=== PATIENT | female | born 1965 | race Caucasian/White ===

== ENCOUNTER 2018-08-15 00:04 | Outpatient (CLI) | payer BC, SELFPAY ==
--- NOTE | 2018-08-15 16:02 | DI.MAMMO_ITS ---
SYMPTOMS/DIAGNOSIS: SCREENING, Z12.31 MAMMOGRAM: Mammograms were interpreted according to the usual protocol including computer analysis with CAD system, tomosynthesis and C view imaging. Comparison is made with exams from 2014 through 2018. The breasts are composed of heterogeneously dense fibroglandular tissue, breast density Category C. No suspicious masses or suspicious microcalcifications are seen. There has been no significant change. IMPRESSION: Category I C, negative mammogram. Yearly screening mammography is recommended. [facility] ASSESSMENT OF FINDINGS: Negative. Category 1. Patient will receive a letter notifying them of these results. Bi-RADS category C. The breasts are heterogeneously dense, which may obscure small masses.
== END 2018-08-15 00:24 ==
PROVIDERS: PCP Family Medicine; Visit Provider Family Medicine
DX: Z12.31 Encounter for screening mammogram for malignant neoplasm of breast (principal)
CPT/HCPCS: 77063; 77067

== ENCOUNTER 2019-12-04 10:04 | Outpatient (REF) | payer BC, SELFPAY ==
[2019-12-04 18:33] LABS: HCT 40.1 % (36.0-46.0); HGB 13.1 g/dL (12.0-15.5); Mean Corp. HGB Concentration 32.7 g/dL (32.0-36.0); Mean Corpuscular Hemoglobin 30.3 pg (27.0-33.0); Mean Corpuscular Volume 92.6 fL (80-95); Mean Platelet Volume 11.4 fL (8.0-11.0); Platelet Count 236 x1000/uL (130-400); RBC 4.33 m/cumm (4.00-5.20); RBC Distribution Width 12.6 % (11.7-14.6); White Blood Cell Count 4.01 k/cumm (4.4-10.8)
[2019-12-04 18:53] LABS: ALT 178 U/L (14-59); AST 75 U/L (15-37); Albumin 3.9 g/dL (3.4-5.0); Alkaline Phosphatase 73 U/L (46-116); Anion Gap 7.8 mmol/L (3-11); BUN 20 mg/dL (7-18); Bilirubin, Total 0.3 mg/dL (0.2-1.0); CO2 28.2 mmol/L (21.0-32.0); CREATININE 0.77 mg/dL (0.55-1.02); Calcium 9.4 mg/dL (8.5-10.1); Chloride 102 mmol/L (98-107); Glucose 81 mg/dL (74-106); Potassium 4.7 mmol/L (3.5-5.1); Sodium 138 mmol/L (136-145); TSH (W/Ref FT4) 1.59 uIU/mL (0.36-3.74); Total Protein 7.7 g/dL (6.4-8.2)
[2019-12-09 14:03] LABS: Iron 100 ug/dL (50-170); Total Iron Binding Capacity 309 ug/dL (250-450); Transferrin Sat 32 % (15-50)
[2019-12-09 14:17] LABS: Ferritin 135 ng/mL (8-252)
== END 2019-12-04 10:24 ==
LOC: NCHCN 10:04
PROVIDERS: PCP Family Medicine; Visit Provider Family Medicine
DX: I10 Essential (primary) hypertension (principal); R79.89 Other specified abnormal findings of blood chemistry; F10.10 Alcohol abuse, uncomplicated
CPT/HCPCS: 80053; 85027; 82728; 83540; 83550; 84443

== ENCOUNTER 2019-12-14 16:54 | Outpatient (REF) | payer BC, SELFPAY ==
[2019-12-16 11:48] LABS: Hepatitis A Antibody IgM Negative (Negative); Hepatitis B Core Antibody Negative (Negative); Hepatitis B surface Ag Negative (Negative); Hepatitis C Ab w Rflx HCV PCR Negative (Negative)
== END 2019-12-14 17:14 ==
LOC: NCHCN 16:54
PROVIDERS: PCP Family Medicine; Visit Provider Family Medicine
DX: R79.89 Other specified abnormal findings of blood chemistry (principal); F10.10 Alcohol abuse, uncomplicated
CPT/HCPCS: 86704; 86709; 86803; 87340

== ENCOUNTER 2020-02-22 19:39 | Outpatient (REF) | payer BC, SELFPAY ==
[2020-02-22 21:53] LABS: ALT 131 U/L (14-59); AST 52 U/L (15-37); Albumin 3.9 g/dL (3.4-5.0); Alkaline Phosphatase 73 U/L (46-116); Bilirubin, Direct 0.06 mg/dL (0.00-0.20); Bilirubin, Total 0.2 mg/dL (0.2-1.0); Total Protein 7.6 g/dL (6.4-8.2)
== END 2020-02-22 19:59 ==
LOC: NCHCN 19:39
PROVIDERS: PCP Family Medicine; Visit Provider Family Medicine
DX: R79.89 Other specified abnormal findings of blood chemistry (principal)
CPT/HCPCS: 80076

== ENCOUNTER 2020-05-09 00:38 | Outpatient (CLI) | payer BC, SELFPAY ==
--- NOTE | 2020-05-09 12:55 | DI.MAMMO_ITS ---
EXAM: MAMMO SCREENING CLINICAL HISTORY: SCREENING,Z12.31 TECHNIQUE: Mammograms were interpreted according to the usual protocol including computer analysis w [facility] CAD system, tomosynthesis and C-view imaging. COMPARISON: FINDINGS: Breasts are heterogeneously dense. No dominant mass or clumped microcalcification is identified in e ither breast. Current examination is compared with previous examinations including August 2018 and there has been no gross interval change in appearance in comparison with the prior studies. IMPRESSION: No specific evidence of malignancy at this time. Routine screening examinations are suggested at yea rly intervals due to the family history of breast carcinoma. BI-RADS Category 1 - Negative Breast Density - Category C - Heterogeneously dense
== END 2020-05-09 00:58 ==
PROVIDERS: PCP Family Medicine; Visit Provider Family Medicine
DX: Z12.31 Encounter for screening mammogram for malignant neoplasm of breast (principal); Z80.3 Family history of malignant neoplasm of breast
CPT/HCPCS: 77063; 77067

== ENCOUNTER 2020-05-18 21:01 | Outpatient (REF) | payer BC, SELFPAY ==
[2020-05-18 19:46] LABS: ALT 294 U/L (14-59); AST 112 U/L (15-37); Albumin 4.2 g/dL (3.4-5.0); Alkaline Phosphatase 85 U/L (46-116); Bilirubin, Direct 0.07 mg/dL (0.00-0.20); Bilirubin, Total 0.3 mg/dL (0.2-1.0)
== END 2020-05-18 21:21 ==
LOC: NCHCN 21:01
PROVIDERS: PCP Family Medicine; Visit Provider Family Medicine
DX: R79.89 Other specified abnormal findings of blood chemistry (principal)
CPT/HCPCS: 80076

== ENCOUNTER 2020-05-31 00:43 | Outpatient (CLI) | payer BC, SELFPAY ==
--- NOTE | 2020-05-31 | DI.US_ITS ---
EXAM: US ABDOMEN CLINICAL HISTORY: ELEVATED LFT'S,R79.89 TECHNIQUE: Ultrasound abdomen performed using standard protocol. COMPARISON: No exams were available for comparison FINDINGS: ABDOMINAL AORTA AND IVC: Visualized portions normal caliber. PANCREAS: Normal where visualized. LIVER: The liver is echogenic consistent with fatty infiltration. The liver measures 17.5 cm in [place] th. Hepatopedal flow in the Portal Vein. There is a 5 x 5.4 x 6.9 cm thinly septated cyst in the lef t lobe of the liver. No internal blood flow is seen. There is a 1.4 x 1.9 x 1.7 cm cyst in the left lobe of the liver. GALLBLADDER: No evidence of cholelithiasis. No evidence of wall thickening. No pericholecystic fluid identified. BILIARY SYSTEM: Common bile duct measures < 7 mm. No intrahepatic biliary ductal dilation. CUEVAS'S SIGN: Negative. KIDNEYS: Kidneys are symmetric in size. No evidence of renal calculi. No evidence of hydronephrosis. No renal mass or cyst identified. SPLEEN: Not enlarged. ASCITES: None seen. IMPRESSION: 1. Hepatic steatosis. 2. Hepatic cysts. The largest measures 6.9 cm and is septated. A CT scan of the liver is recommende d for further evaluation. DATA REPOSITORY:
== END 2020-05-31 01:03 ==
PROVIDERS: PCP Family Medicine; Visit Provider Family Medicine
DX: K76.0 Fatty (change of) liver, not elsewhere classified (principal); K76.89 Other specified diseases of liver
CPT/HCPCS: 76700

== ENCOUNTER 2020-06-30 00:46 | Outpatient (CLI) | payer BC, SELFPAY ==
[2020-06-30 09:10] LABS: CREATININE 0.71 mg/dL (0.55-1.02)
[2020-06-30] MEDS: Omnipaque 350 MG/ML 100 ML BTL IJ (09:43)
[2020-06-30] MEDS: Normal Saline - Diluent 50 ML VIAL IV (09:48)
--- NOTE | 2020-06-30 09:52 | DI.CT_ITS ---
EXAM: CT ABDOMEN W CLINICAL HISTORY: F/U LIVER CYSTS ON US. TECHNIQUE: Imaging Protocol: Axial computed tomography images with coronal and sagittal reformatted images were created and reviewed CONTRAST MATERIAL: Intravenous: Omnipaque 100cc Oral: Yes COMPARISON: US US ABDOMEN from 05/31/2020 US US ABDOMEN from 05/31/2020 FINDINGS: VISUALIZED LUNG BASES: No nodules nor pleural effusions evident. ABDOMEN: There is no ascites. LIVER: There is a large simple unilocular cyst in the left hepatic lobe which measures 6.3 centimetre s wide by 5.6 centimetres AP by 5.2 centimetres cephalocaudal. No other focal left hepatic lobe find ings but there is no other smaller cysts seen in the inferior aspect of the right hepatic lobe which measures 1.8 centimetres wide by 1.6 centimetres AP by 1.3 centimetres cephalocaudal. This also has a simple appearance. No solid lesions seen in the liver. No dilated intrahepatic ducts. Liver is s teatotic. Upper normal size. GALLBLADDER/BILIARY: No obvious gallbladder pathology. CBD is not dilated. PANCREAS: No evidence of pancreatic mass nor dilatation of the pancreatic duct. SPLEEN: Spleen is not enlarged. No obvious intrasplenic lesions. Splenic and portal veins are paten t. ADRENALS: There are no significant adrenal masses. KIDNEYS: No calculi nor hydronephrosis. No solid renal masses. No cysts evident. ABDOMINAL AORTA: Abdominal aorta is not enlarged and there is no [id number]-fpittd adenopat hy. ABDOMINAL WALL/GI: No evidence of significant anterior abdominal wall hernia. No bowel obstruction e vident. Please note that the pelvis was not scanned. Osseous: No lytic osseous lesions seen. IMPRESSION: 1. Two benign-appearing cysts in the liver, 1 in each lobe as described individually above. These ap pear unilocular on CT scan. Recommend follow-up ultrasound in 1 year, earlier if clinically indicate d. 2. Hepatic steatosis noted. Correlation appropriate hepatic blood work is recommended. 3. No ascites nor adenopathy in the abdomen. 4. Pelvis was not scanned. RADIATION DOSE DELIVERED: 525.71mGy.cm Total DLP 525.71mGy.cm Total DLP DATA REPOSITORY: All CT scans at this facility are submitted to the National Radiology Data Registry (NRDR) Dose Index Registry (DIR) with the [employer] (ACR). RADIATION OPTIMIZATION: All CT scans at this facility use at least one of these dose optimization te chniques: automated exposure control; mA and/or kV adjustment per patient size (includes targeted exa ms where dose is matched to clinical indication); or iterative reconstruction.
== END 2020-06-30 01:06 ==
PROVIDERS: PCP Family Medicine; Visit Provider Family Medicine
DX: K76.89 Other specified diseases of liver (principal); K76.0 Fatty (change of) liver, not elsewhere classified
CPT/HCPCS: 74160; 82565; J3490

== ENCOUNTER 2020-10-12 16:45 | Outpatient (REF) | payer BC, SELFPAY ==
[2020-10-12 20:03] LABS: ALT 223 U/L (14-59); AST 93 U/L (15-37); Albumin 4.4 g/dL (3.4-5.0); Alkaline Phosphatase 85 U/L (46-116); Bilirubin, Direct 0.1 mg/dL (0.0-0.2); Bilirubin, Total 0.3 mg/dL (0.2-1.0); Total Protein 8.2 g/dL (6.4-8.2)
== END 2020-10-12 16:46 | disposition home or self-care (01) ==
LOC: NCHCN 16:45
PROVIDERS: PCP Family Medicine; Visit Provider Family Medicine
DX: K76.0 Fatty (change of) liver, not elsewhere classified (principal); R79.89 Other specified abnormal findings of blood chemistry
CPT/HCPCS: 80076

== ENCOUNTER 2021-05-12 00:44 | Outpatient (CLI) | payer BC, SELFPAY ==
--- NOTE | 2021-05-12 | DI.MAMMO_ITS ---
Exam(s) MAMMO SCREENING EXAM: MAMMO SCREENING CLINICAL HISTORY: SCREENING, Z12.31 TECHNIQUE: Mammograms were interpreted according to the usual protocol including computer analysis w [employer] CAD system, tomosynthesis and C-view imaging. COMPARISON: FINDINGS: The breasts are heterogeneously dense. No dominant mass or clumped microcalcification is identified in either breast. The current examination is compared with previous examinations including April 15 and there is increased prominence of a focal area of asymmetric density projected in the central portion of the right breast on CC view only. Additional mammographic views of this area are requeste d to include CC spot compression view of the right breast. No other significant change from prior studies. IMPRESSION: Additional mammographic views of the right breast requested as described above. Breast ultrasound ma y be indicated as well depending on the results additional mammographic views. BI-RADS Category 0 - Assessment Incomplete: Need additional imaging evaluation Breast Density - Category C - Heterogeneously dense
== END 2021-05-12 01:04 ==
PROVIDERS: PCP Family Medicine; Visit Provider Family Medicine
DX: Z12.31 Encounter for screening mammogram for malignant neoplasm of breast (principal); R92.8 Other abnormal and inconclusive findings on diagnostic imaging of breast
CPT/HCPCS: 77063; 77067

== ENCOUNTER 2021-06-01 01:05 | Outpatient (CLI) | payer BC, SELFPAY ==
--- NOTE | 2021-06-01 | DI.US_ITS ---
Exam(s) US BREAST RT COMPLETE EXAM: US BREAST RT COMPLETE CLINICAL HISTORY: ASYMMETRIC DENSITY CENTRAL PORTION RT BREAST. TECHNIQUE: Complete ultrasound of the RIGHT breast was performed including all 4 quadrants, the retr oareolar region, and the ipsilateral axilla. COMPARISON: Prior mammograms were reviewed. today's spot compression view was reviewed FINDINGS: There is a solitary finding in the right breast at 12 o'clock position which has appearance of a prob able hemorrhagic microcyst and which may correspond to the finding on the mammogram. This measures a pproximately 4 x 3 millimeters. No other focal finding seen in all 4 quadrants nor in the retroareolar region. Benign-appearing lymp h nodes noted in the right axilla. IMPRESSION: As above. Appropriate follow-up is repeat right breast imaging in 6 months, this to include repeat right breast mammogram and ultrasound.. BI-RADS Category 3 - 6 month - Probably Benign Finding: Recommend follow-up mammography in 6 months Breast Density - Category C - Heterogeneously dense Breast density Category C or D implies that the patient has dense breast tissue. Dense breast tissue can make it harder to find cancer on a mammogram. Dense breast tissue is also associated with an incr eased risk of breast cancer. This information about the result of the mammogram report was provided to the patient to raise their awareness. Use this report when you speak with the patient about their risks for breast cancer, which includes their family history. At that time, you may recommend additional screening tests (Ultrasoun d or MRI) as these tests may add significant information. A negative radiographic report should not delay biopsy if a dominant or clinically suspicious mass is present. Up to ten percent of cancers are not identified on mammography. A negative report may reinforce clinical impression. Adenosis and dense breasts may obscure an underlying neoplasm. False positive reports average 6 to 10%. Patient will receive a letter notifying them of these results.
--- NOTE | 2021-06-01 14:30 | DI.MAMMO_ITS ---
Exam(s) MAMMO SCREEN CALL BACK UNI EXAM: MAMMO SCREEN CALL BACK UNI -RIGHT CLINICAL HISTORY: ASYMMETRIC DENSITY CENTRAL PORTION RT BREAST. TECHNIQUE: Unilateral spot mammographic images obtained with 3D tomosynthesisand utilizing computer aided detection (CAD). . COMPARISON: Prior mammograms were reviewed. This additional imaging was performed due to findings described on the recent screening mammogram of . FINDINGS: Additional mammographic views performed todayis equivocal for significant finding. Ultrasound will be performed. Please see that separate ultrasound report. Ultrasound performed today revealed what appears to be a small hemorrhagic microcysts at 12 o'clock p osition. This may correspond to the finding on the mammogram.. IMPRESSION: Above. Appropriate follow-up is repeat right breast imaging in 6 months, this to include repeat right breas t mammogram and ultrasound.. The patient was informed of these findings and recommendations prior to leaving the department today. BI-RADS Category 3 - 6 month - Probably Benign Finding: Recommend follow-up mammography in 6 months Breast Density - Category C - Heterogeneously dense Breast density Category C or D implies that the patient has dense breast tissue. Dense breast tissue can make it harder to find cancer on a mammogram. Dense breast tissue is also associated with an incr eased risk of breast cancer. This information about the result of the mammogram report was provided to the patient to raise their awareness. Use this report when you speak with the patient about their risks for breast cancer, which includes their family history. At that time, you may recommend additional screening tests (Ultrasoun d or MRI) as these tests may add significant information. A negative radiographic report should not delay biopsy if a dominant or clinically suspicious mass is present. Up to ten percent of cancers are not identified on mammography. A negative report may reinforce clinical impression. Adenosis and dense breasts may obscure an underlying neoplasm. False positive reports average 6 to 10%. Patient will receive a letter notifying them of these results.
== END 2021-06-01 01:25 ==
PROVIDERS: PCP Family Medicine; Visit Provider Family Medicine
DX: Z12.31 Encounter for screening mammogram for malignant neoplasm of breast (principal); R92.8 Other abnormal and inconclusive findings on diagnostic imaging of breast; N60.01 Solitary cyst of right breast; N64.59 Other signs and symptoms in breast
CPT/HCPCS: 76642; 77063; 77067

== ENCOUNTER 2021-08-02 09:02 | Outpatient (REF) | payer BC, SELFPAY ==
[2021-08-02 16:01] LABS: ALT 37 U/L (14-59); AST 25 U/L (15-37); Albumin 4.4 g/dL (3.4-5.0); Alkaline Phosphatase 90 U/L (46-116); Bilirubin, Direct 0.1 mg/dL (0.0-0.2); Bilirubin, Total 0.3 mg/dL (0.2-1.0); Total Protein 7.6 g/dL (6.4-8.2)
[2021-08-02 16:19] LABS: Calculated LDL 164 mg/dL (<100); Cholesterol 258 mg/dL (<200); HDL Cholesterol 83 mg/dL (40-60); Triglyceride 56 mg/dL (<150)
[2021-08-03 10:24] LABS: HIV-1/2 Ag & Ab Screen Negative (Negative)
== END 2021-08-02 09:03 | disposition home or self-care (01) ==
LOC: NCHCN 09:02
PROVIDERS: PCP Family Medicine; Visit Provider Family Medicine
DX: Z00.00 Encounter for general adult medical examination without abnormal findings (principal); R79.89 Other specified abnormal findings of blood chemistry; Z11.4 Encounter for screening for human immunodeficiency virus [HIV]; Z13.220 Encounter for screening for lipoid disorders
CPT/HCPCS: 80061; 80076; 87389

== ENCOUNTER 2021-12-28 12:38 | Outpatient (REF) | payer BC, SELFPAY ==
--- NOTE | 2021-12-28 11:00 | SKI_PTH ---
PATIENT: Amber Solomon LOC: [facility] U#:[id number] AGE/SX: 56/F ROOM: RE12/28/[address]: Vickie Sandy : 1965 BED: DIS: 12/28/2021 SPEC #: [id number] RECD: 12/28/21 16:55 STATUS: GONZALO HONG #: [id number] KLAUS: 12/28/21 11:[address]: Vickie Sandy DEPT: Surgical Specimen RECD BY: Ashanti Silvestre Tissues: 1 - SKIN BIOPSY(SHAVE/PUNCH) Procedures: SKIN LEVEL 4 Comments: [id number]
== END 2021-12-28 12:39 | disposition home or self-care (01) ==
LOC: NCHCN 12:38
PROVIDERS: PCP Family Medicine; Visit Provider Family Medicine
DX: L82.1 Other seborrheic keratosis (principal)
CPT/HCPCS: 88305

== ENCOUNTER → 2022-01-03 01:15 | Outpatient (CLI) | payer BC, SELFPAY ==
--- NOTE | 2022-01-03 | DI.US_ITS ---
Exam(s) MG MAMMO DIAGNOSTIC UNI US BREAST RT LIMITED EXAM: MG MAMMO DIAGNOSTIC UNI and U/S breast RT limited CLINICAL HISTORY: DIAGNOSTIC, H/O ABNL MAMMO, Z87.898. TECHNIQUE: Craniocaudal and mediolateral oblique Full Field Digital Mammography views of the right b reast with Computer Aided Diagnosis followed by Tomosynthesis and right breast ultrasound. COMPARISON: Comparison with prior examinations. FINDINGS: Mammography/Tomosynthesis: Masses/Architectural Distortion: None seen. Microcalcifictions: No suspicious pleomorphic-type are seen. Skin Thickening/Nipple Retraction: None. Limited right breast US: Echotexture: Normal appearance of the glandular tissue. Shadowing: No suspicious foci. Cyst: The 0.3 cm cyst at the 12 o'clock position 4 cm from the nipple is unchanged. Solid lesions: None seen. Ductal dilation: None. IMPRESSION: 1. No evidence of malignancy is noted. 2. Unless there is more urgent need, follow-up screening mammography is recommended, as per [employer] guidelines. 3. The findings were discussed with the patient on the date of the examination. BI-RADS Category 2 - Benign Findings Breast Density - Category C - Heterogeneously dense Breast density Category C or D implies that the patient has dense breast tissue. Dense breast tissue can make it harder to find cancer on a mammogram. Dense breast tissue is also associated with an incr eased risk of breast cancer. This information about the result of the mammogram report was provided to the patient to raise their awareness. Use this report when you speak with the patient about their risks for breast cancer, which includes their family history. At that time, you may recommend additional screening tests (Ultrasoun d or MRI) as these tests may add significant information. A negative radiographic report should not delay biopsy if a dominant or clinically suspicious mass is present. Up to ten percent of cancers are not identified on mammography. A negative report may reinforce clinical impression. Adenosis and dense breasts may obscure an underlying neoplasm. False positive reports average 6 to 10%. Patient will receive a letter notifying them of these results.
== END ==
PROVIDERS: PCP Family Medicine; Visit Provider Family Medicine
DX: R92.2 Inconclusive mammogram (principal); Z87.898 Personal history of other specified conditions
CPT/HCPCS: 76642; 77061; 77065; G0279

== ENCOUNTER 2022-04-12 14:32 | Outpatient (REF) | payer BC, SELFPAY ==
--- NOTE | 2022-04-12 11:17 | PAPFT_PTH ---
PATIENT: Amber Solomon LOC: [facility] U#:[id number] AGE/SX: 56/F ROOM: RE04/12/[address]: Vickie Sandy : 1965 BED: DIS: 04/12/2022 SPEC #: [id number] RECD: 04/12/22 17:51 STATUS: GONZALO RERoxy #: [id number] KLAUS: 04/12/22 11:[address]: Vickie Sandy DEPT: [facility] Cytology RECD BY: Ashanti Silvestre Tissues: 1 - CX/ENDOCX FOR PAP SMEARS Procedures: PAP THIN PREP/UVM Screening HPV DNA PROBE Comments: [id number]
[2022-04-12 14:52] LABS: HCT 39.3 % (36.0-46.0); HGB 12.6 g/dL (11.2-15.7); MCH 28.4 pg (27.0-33.0); MCHC 32.1 % (32.0-36.0); MCV 89 fL (80-95); Platelet Count 265 10^3/uL (130-400); RBC 4.43 10^6/uL (3.93-5.22); RDW 12.2 % (11.7-14.6); RDW-SD 39.6 fL; WBC 5.94 10^3/uL (4.4-10.8)
[2022-04-12 15:23] LABS: ALT 32 U/L (14-59); AST 26 U/L (15-37); Albumin 4.2 g/dL (3.4-5.0); Alkaline Phosphatase 73 U/L (46-116); Anion Gap 6.6 mmol/L (3-11); BUN 14 mg/dL (7-18); Bilirubin, Total 0.3 mg/dL (0.2-1.0); CO2 29.4 mmol/L (21.0-32.0); CREATININE 0.7 mg/dL (0.55-1.02); Calcium 9.6 mg/dL (8.5-10.1); Chloride 103 mmol/L (98-107); Estimated GFR 100.19 (mL/min/1.73m2); Glucose 82 mg/dL (74-106); Potassium 4.1 mmol/L (3.5-5.1); Sodium 139 mmol/L (136-145); Total Protein 7.8 g/dL (6.4-8.2)
== END 2022-04-12 14:33 | disposition home or self-care (01) ==
LOC: NCHCN 14:32
PROVIDERS: PCP Family Medicine; Visit Provider Family Medicine
DX: I10 Essential (primary) hypertension (principal); Z12.4 Encounter for screening for malignant neoplasm of cervix; Z01.419 Encounter for gynecological examination (general) (routine) without abnormal findings; Z11.51 Encounter for screening for human papillomavirus (HPV)
CPT/HCPCS: 80053; 85027; 88142; 87624

== ENCOUNTER 2022-07-12 10:21 | Outpatient (REF) | payer BC, SELFPAY ==
[2022-07-12 16:08] LABS: Uric Acid 3.7 mg/dL (2.6-6.0)
== END 2022-07-12 10:22 | disposition home or self-care (01) ==
LOC: NCHCN 10:21
PROVIDERS: PCP Family Medicine; Visit Provider Family Medicine
DX: M79.671 Pain in right foot (principal)
CPT/HCPCS: 84550

== ENCOUNTER 2022-09-11 01:16 | Outpatient (CLI) | payer BC, SELFPAY ==
--- NOTE | 2022-09-11 06:30 | DI.RAD_ITS ---
Exam(s) XR FOOT RT COMPLETE EXAM: XR FOOT RT COMPLETE CLINICAL HISTORY: R hallux rigidus,PAIN, M79.673,M20.20. TECHNIQUE: 2D digital imaging was performed. COMPARISON: No exams were available for comparison FINDINGS: 3 views No evidence of acute fracture or diastasis of the Lisfranc joint. There are advanced degenerative ch anges in the great toe metatarsophalangeal joint with joint space narrowing and degenerative subartic ular cysts and marginal osteophytes at this articulation. No distinct erosions evident at this artic ulation. Other MTP joints appear unremarkable as do the tarsometatarsal joints. No pes planus. Tin y inferior calcaneal spur noted. Enthesophyte noted posteriorly at the Achilles insertion on the pos terior aspect of the calcaneus. IMPRESSION: Degenerative changes at the great toe metatarsophalangeal joint. DATA REPOSITORY: RADIATION DOSE DELIVERED:
== END 2022-09-11 01:36 ==
LOC: DI 01:17
PROVIDERS: PCP Family Medicine; Visit Provider Podiatrist Foot & Ankle Surgery
DX: M20.21 Hallux rigidus, right foot (principal); M19.071 Primary osteoarthritis, right ankle and foot
CPT/HCPCS: 73630

== ENCOUNTER 2023-04-15 18:41 | Outpatient (REF) | payer BC, SELFPAY ==
[2023-04-15 18:03] LABS: ALT 29 U/L (14-59); AST 23 U/L (15-37); Albumin 3.8 g/dL (3.4-5.0); Alkaline Phosphatase 70 U/L (46-116); Anion Gap 8.2 mmol/L (3-11); BUN 13 mg/dL (7-18); Bilirubin, Total 0.3 mg/dL (0.2-1.0); CO2 26.8 mmol/L (21.0-32.0); CREATININE 0.7 mg/dL (0.55-1.02); Calcium 10.1 mg/dL (8.5-10.1); Chloride 103 mmol/L (98-107); Estimated GFR 99.57 (mL/min/1.73m2); Glucose 85 mg/dL (74-106); Sodium 138 mmol/L (136-145); TSH (W/Ref FT4) 0.98 uIU/mL (0.36-3.74); Total Protein 7.9 g/dL (6.4-8.2)
== END 2023-04-15 18:42 | disposition home or self-care (01) ==
LOC: NCHCN 18:41
PROVIDERS: PCP Family Medicine; Visit Provider Family Medicine
DX: R53.83 Other fatigue (principal)
CPT/HCPCS: 80053; 84443

== ENCOUNTER → 2023-05-23 00:39 | Outpatient (CLI) | payer BC, SELFPAY ==
--- NOTE | 2023-05-23 08:10 | DI.MAMMO_ITS ---
Exam(s) MAMMO SCREENING EXAM: MAMMO SCREENING CLINICAL HISTORY: SCREENING MAMMO FOR BREAST CANCER Z12.31. TECHNIQUE: Bilateral full field digital CC and MLO mammographic images were obtained with 3D tomosyn thesis and utilizing computer aided detection (CAD). COMPARISON: Prior mammograms were reviewed. FINDINGS: Fibroglandular tissue is again noted be moderately dense, this somewhat decreasing the sensitivity of the mammogram for finding hidden underlying lesions. There are no obvious new spiculated masses. Benign-appearing nodules in the left axillary tail consi stent with benign lymph nodes are unchanged from prior studies. There is a group of relatively stable microcalcifications laterally in the left breast again noted. No new malignant-appearing microcalcification groups. There is no significant architectural distortion nor skin thickening-retraction. IMPRESSION: Stable benign-appearing findings. No radiographic evidence of malignancy. BI-RADS Category 2 - Benign Findings Breast Density - Category C - Heterogeneously dense Breast density Category C or D implies that the patient has dense breast tissue. Dense breast tissue can make it harder to find cancer on a mammogram. Dense breast tissue is also associated with an incr eased risk of breast cancer. This information about the result of the mammogram report was provided to the patient to raise their awareness. Use this report when you speak with the patient about their risks for breast cancer, which includes their family history. At that time, you may recommend additional screening tests (Ultrasoun d or MRI) as these tests may add significant information. A negative radiographic report should not delay biopsy if a dominant or clinically suspicious mass is present. Up to ten percent of cancers are not identified on mammography. A negative report may reinforce clinical impression. Adenosis and dense breasts may obscure an underlying neoplasm. False positive reports average 6 to 10%. Patient will receive a letter notifying them of these results.
== END ==
PROVIDERS: PCP Family Medicine; Visit Provider Family Medicine
DX: Z12.31 Encounter for screening mammogram for malignant neoplasm of breast (principal); R92.333 Mammographic heterogeneous density, bilateral breasts; R92.0 Mammographic microcalcification found on diagnostic imaging of breast
CPT/HCPCS: 77063; 77067

== ENCOUNTER 2023-05-27 13:12 | Outpatient (CLI) | payer BC, SELFPAY ==
--- NOTE | 2023-05-27 09:00 | DI.RAD_ITS ---
Exam(s) XR WRIST RT COMPLETE XR WRIST LT COMPLETE EXAM: XR WRIST LT COMPLETE CLINICAL HISTORY: eval L thumb/wrist pain. TECHNIQUE: 2D digital imaging was performed. Three views of both wrists. COMPARISON: CR XR WRIST RT COMPLETE from 05/27/2023 FINDINGS: BONES: No acute fracture is present. No bony destructive lesion is seen. JOINTS: The carpal bones are normally aligned. Degenerative changes noted at scaphoid trapezium trape zoid joints bilaterally, roughly symmetric. Little degenerative change elsewhere. SOFT TISSUE: Normal. IMPRESSION: Degenerative changes scaphoid trapezium trapezoid joints bilaterally. DATA REPOSITORY: RADIATION DOSE DELIVERED:
--- NOTE | 2023-05-27 09:00 | DI.RAD_ITS ---
Exam(s) XR CERVICAL SPINE COMP 4-5V EXAM: XR CERVICAL SPINE COMP 4-5V CLINICAL HISTORY: eval c-spine pain and ?radiculopathy. TECHNIQUE: 2D digital imaging was performed. Five views were performed. COMPARISON: No exams were available for comparison FINDINGS: BONES: No fracture or destructive lesion. Vertebral bodies are unremarkable. DISKS: Intervertebral disc spaces are maintained. No neural foraminal narrowing. ALIGNMENT: Cervical spinal alignment is within normal limits. The odontoid and atlantoaxial articulat ions are normal. SOFT TISSUE: Normal. No prevertebral soft tissue swelling. The airway is unremarkable. The lung ap ices are clear. IMPRESSION: Unremarkable radiographs of the cervical spine. DATA REPOSITORY: RADIATION DOSE DELIVERED:
== END 2023-05-27 13:13 | disposition home or self-care (01) ==
LOC: DIORS 13:13
PROVIDERS: PCP Family Medicine; Visit Provider Student in an Organized Health Care Education/Training Program
DX: M19.032 Primary osteoarthritis, left wrist (principal); M54.2 Cervicalgia; M19.031 Primary osteoarthritis, right wrist
CPT/HCPCS: 72050; 73110

== ENCOUNTER 2024-04-29 12:21 | Outpatient (REF) | payer BC, SELFPAY ==
[2024-04-29 15:40] LABS: HCT 38.9 % (36.0-46.0); MCH 29.1 pg (27.0-33.0); MCHC 33.4 % (32.0-36.0); MCV 87 fL (80-95); MPV 10.3 fL (8.0-11.0); Platelet Count 320 10^3/uL (130-400); RBC 4.46 10^6/uL (3.93-5.22); RDW 11.9 % (11.7-14.6); RDW-SD 38.4 fL; WBC 6.27 10^3/uL (4.4-10.8)
[2024-04-29 16:04] LABS: ALT 35 U/L (14-59); AST 26 U/L (15-37); Albumin 3.9 g/dL (3.4-5.0); Alkaline Phosphatase 70 U/L (46-116); Anion Gap 11.3 mmol/L (3-11); BUN 12 mg/dL (7-18); CO2 24.7 mmol/L (21.0-32.0); CREATININE 0.8 mg/dL (0.55-1.02); Chloride 106 mmol/L (98-107); Glucose 98 mg/dL (74-106); Sodium 142 mmol/L (136-145); TSH (W/Ref FT4) 0.93 uIU/mL (0.36-3.74); Total Protein 8.2 g/dL (6.4-8.2)
== END 2024-04-29 12:22 | disposition home or self-care (01) ==
LOC: NCHCN 12:21
PROVIDERS: PCP Family Medicine; Visit Provider Family Medicine
DX: R53.83 Other fatigue (principal); E03.9 Hypothyroidism, unspecified
CPT/HCPCS: 80053; 85027; 84443

== ENCOUNTER 2024-07-22 02:07 | Outpatient (CLI) | payer BC, SELFPAY ==
--- NOTE | 2024-07-22 07:45 | DI.MAMMO_ITS ---
Exam(s) MAMMO SCREENING EXAM: MAMMO SCREENING CLINICAL HISTORY: Z12.31 Screening TECHNIQUE: Bilateral full field digital CC and MLO mammographic images were obtained with 3D tomosyn thesis and utilizing computer aided detection (CAD). COMPARISON: Available for comparison. FINDINGS: Masses/Architectural Distortion: There are no suspicious masses present. No areas of architectural d istortion are seen. Microcalcifications: No suspicious pleomorphic-type are seen. Skin Thickening/Nipple Retraction: None. IMPRESSION: 1. No significant interval change with no specific features of malignancy noted. 2. Unless there is more urgent need, screening mammography is recommended, as per [employer] guidelines. BI-RADS Category 1 - Negative Breast Density - Category C - Heterogeneously dense Breast density category C or D implies that the patient has dense breast tissue. Dense breast tissue is very common and is not abnormal but dense breast tissue can make it harder to find cancer on a ma mmogram. Also, dense breast tissue may increase their breast cancer risk. This information about the result of the mammogram report was provided to the patient to raise their awareness. Use this report when you speak with the patient about their risks for breast cancer, which includes their family hist ory. At that time, you may recommend for more screening tests (Ultrasound or MRI) as they might be us eful based on their risk. A negative radiographic report should not delay biopsy if a dominant or clinically suspicious mass is present. Up to ten percent of cancers are not identified on mammography. A negative report may reinforce clinical impression. Adenosis and dense breasts may obscure an underlying neoplasm. False positive reports average 6 to 10%. Patient will receive a letter notifying them of these results.
== END 2024-07-22 02:27 ==
LOC: DI 02:07
PROVIDERS: PCP Family Medicine; Visit Provider Family Medicine
DX: Z12.31 Encounter for screening mammogram for malignant neoplasm of breast (principal); R92.333 Mammographic heterogeneous density, bilateral breasts
CPT/HCPCS: 77063; 77067

== ENCOUNTER 2024-12-18 12:36 | Outpatient (REF) | payer BC, SELFPAY ==
[2024-12-18 16:22] LABS: HCT 39.5 % (36.0-46.0); HGB 12.9 g/dL (11.2-15.7); MCH 29.5 pg (27.0-33.0); MCHC 32.7 % (32.0-36.0); MCV 90 fL (80-95); MPV 10.7 fL (8.0-11.0); Platelet Count 252 10^3/uL (130-400); RBC 4.37 10^6/uL (3.93-5.22); RDW 12.1 % (11.7-14.6); WBC 5.06 10^3/uL (4.4-10.8)
[2024-12-18 16:46] LABS: ALT 29 U/L (14-59); AST 18 U/L (15-37); Albumin 4.1 g/dL (3.4-5.0); Alkaline Phosphatase 74 U/L (46-116); Anion Gap 8.3 mmol/L (3-11); BUN 12 mg/dL (7-18); Bilirubin, Total 0.3 mg/dL (0.2-1.0); CO2 29.7 mmol/L (21.0-32.0); CREATININE 0.7 mg/dL (0.55-1.02); Calcium 9.7 mg/dL (8.5-10.1); Chloride 104 mmol/L (98-107); Estimated GFR 98.34 (mL/min/1.73m2); Glucose 84 mg/dL (74-106); Potassium 4.3 mmol/L (3.5-5.1); Sodium 142 mmol/L (136-145); Total Protein 7.7 g/dL (6.4-8.2)
[2024-12-18 17:21] LABS: Hemoglobin A1C 5.4 % (<5.7)
[2024-12-21 11:39] LABS: IgA 307 mg/dL (85-499)
[2024-12-21 12:07] LABS: Tissue Transglutaminase IgA <4.0 CU (<20.0)
== END 2024-12-18 12:37 | disposition home or self-care (01) ==
LOC: NCHCN 12:36
PROVIDERS: PCP Family Medicine; Visit Provider Family Medicine
DX: R06.02 Shortness of breath (principal); Z13.1 Encounter for screening for diabetes mellitus; R14.0 Abdominal distension (gaseous)
CPT/HCPCS: 80053; 82784; 85027; 83036

== ENCOUNTER 2025-01-12 01:43 | Outpatient (CLI) | payer BC, SELFPAY ==
--- NOTE | 2025-01-12 | DI.US_ITS ---
APPROVED REPORT EXAM: Comprehensive 2D, Doppler, and color-flow Echocardiogram Patient Location: Out-Patient Academic Records Specialist: Cal Spence RDCS (AE) Other Information Study Quality: Adequate Conclusion Normal left ventricular wall thickness and chamber size. Ejection fraction is 65%. Wall motion is normal Normal right ventricular size and function Both atria are normal in size There is no structural or hemodynamically significant valvular disease Incidental finding of a liver cyst Wall motion Left Ventricle The left ventricle is normal size. Left ventricular systolic function is normal. The left ventricular ejection fraction is within the normal range. There is normal left ventricular wall thickness. There is normal LV segmental wall motion. There is no ventricular septal defect visualized. LVEF is 65%. Right Ventricle The right ventricle is normal size. The right ventricular systolic function is normal. Atria The left atrium size is normal. The right atrium size is normal. Atrial septum is thin and hypermobile Aortic Valve The aortic valve is normal in structure. Aortic valve is trileaflet. There is no aortic valvular stenosis. No aortic regurgitation is present. Mitral Valve The mitral valve is normal in structure. No evidence of mitral valve stenosis. Trace mitral regurgitation. Tricuspid Valve The tricuspid valve is normal in structure. There is no tricuspid valve stenosis. Trace tricuspid regurgitation. Pulmonic Valve The pulmonary valve is normal in structure. There is no pulmonic valvular stenosis. There is no pulmonic valvular regurgitation. Great Vessels The aortic root is normal in size. The ascending aorta is normal in size. Aortic arch is normal in caliber. IVC is normal in size and collapses >50% with inspiration. Pericardium There is no pericardial effusion. 2D Dimensions IVSD d PLAX 0.81 cm F: 0.6-1.0 Ao Root d 2.73 cm F: 2.7 - 3.3 LVPW d PLAX 0.64 cm F: 0.6 - 1.0 Ao Asc Diam d 2.92 cm F: 2.3 - 3.1 LVID d PLAX 5.04 cm F: 3.8 - 5.2 LVDs 3.23 cm F: 2.2 - 3.5 LV EF Teichholz 65.2 % FS 35.90 % LV EDV (Teich) 120.6 mL LV ESV (Teich) 42.0 mL Stroke Vol Index (Teich) 45.98 M-Mode TAPSE 2.78 cm (M/F) >1.7 Auto EF LV EDV A4C 109.4 mL LV EDV A2C 80.3 mL LV EDV BP 95.6 mL LV ESV A4C 40.6 mL LV ESV A2C 26.5 mL LV ESV BP 34.4 mL LVEF(%) A4C 62.9 % LVEF(%) A2C 67.0 % LVEF(%) BP 64.0 % LV SV A4C 68.8 ml LV SV A2C 53.8 ml LV SV BP 61.2 ml LV CO A4C 4.5 L/min LV CO A2C 3.3 L/min LV CO BP 3.9 L/min HR A4C 65.34 BPM HR A2C 60.49 BPM LV EDV Index (BP) LA Volume LA Length A4C 5.1 cm LA Length A2C 3.7 cm LA Area A4C s 13.13 cm2 LA Area A2C s 9.86 cm2 LA Vol A4C A-L 28.88 mL LA Vol A2C A-L 22.23 mL LA Vol Biplane A-L 29.6 mL LA Vol/BSA A4C A-L LA Vol/BSA A2C A-L LA Vol/BSA BP A-L 17.3 mL/m2 LA Vol A4C MOD 27.8 mL LA Vol A2C MOD 18.5 mL LA Vol BP MOD 26.4 mL RA Volume RA Area A4C 10.0 cm2 RA ESV A4C (A-L) 21.1mL RA Vol/BSA A4C A-L RA Length A4C 4.0 cm RA ESV A4C (MOD) 20.3mL LV Diastology MV E' medial 0.075 (>0.07 m/s) MV E Vmax 0.59 (0.4-1.3 m/s) MV E/E' MED 7.85 (<14) MV A Vmax 0.70 (0.4-1.3 m/s) MV E' lateral 0.107 (>0.1 m/s) E/A Ratio 0.8 MV E/E' LAT 5.47 (<14) MV E' Average 0.091 m/s MV E/E'(average) 6.45 Aortic Valve AoV Vmax 1.25 m/s LVOT Vmax 0.96 m/s AoV Peak Grad 6.2 mmHg LVOT Peak Grad 3.7 mmHg AoV Area (Vmax) 2.79 cm2 LVOT VTI 0.226 m AoV VTI 0.295 m LVOT Mean Grad 2.2 mmHg AoV Mean David. 0.92 m/s LVOT SV 82.25 mL AoV Mean Grad 3.8 mmHg LVOT Diam s 2.15 cm AoV Area (VTI) 2.78 cm2 AV Regurg Peak Gr. 6.22 mmHg Velocity Ratio 0.77 Mitral Valve MV DT 209 (160-240 msec) Pulmonary Valve PV Vmax 1.08 (0.5-1.5 m/s) RVOT Vmax 0.59 m/s PV Peak Grad 4.6 mmHg RVOT Peak Gr. 1.4 mmHg PV Mean David 0.62 m/s RVOT VTI 0.135 m PV Mean Grad 1.8 mmHg RVOT Mean Gr. 0.8 mmHg
== END 2025-01-12 02:03 ==
PROVIDERS: PCP Family Medicine; Visit Provider Internal Medicine Cardiovascular Disease
DX: R06.02 Shortness of breath (principal)
CPT/HCPCS: 93306

== ENCOUNTER 2025-04-02 10:07 | Outpatient (REF) | payer BC, SELFPAY ==
[2025-04-02 15:57] LABS: ESR 19 mm/hr (0-30)
[2025-04-02 16:21] LABS: C-Reactive Protein 0.51 mg/dL (<or=0.5); Creatine Kinase 112 U/L (26-192); TSH (W/Ref FT4) 0.91 uIU/mL (0.36-3.74)
== END 2025-04-02 10:08 | disposition home or self-care (01) ==
LOC: NCHCN 10:07
PROVIDERS: PCP Family Medicine; Visit Provider Family Medicine
DX: R53.81 Other malaise (principal); R53.83 Other fatigue; R63.5 Abnormal weight gain; M25.50 Pain in unspecified joint
CPT/HCPCS: 82550; 85652; 84443; 86140

== ENCOUNTER 2025-05-03 02:16 | Outpatient (CLI) | payer BC, SELFPAY ==
--- NOTE | 2025-05-03 | DI.US_ITS ---
Exam(s) MG MAMMO DIAGNOSTIC UNI US BREAST RT COMPLETE EXAM: MG MAMMO DIAGNOSTIC UNI and U/S breast RT complete CLINICAL HISTORY: MASS LUMP RT BREAST N63.11 UPPER OUTER QUAD RT BREAST. TECHNIQUE: Craniocaudal and mediolateral oblique Full Field Digital Mammography views of the right breast with Computer Aided Diagnosis followed by Tomosynthesis and complete right breast ultrasound. All 4 quadrants, the right axilla and right retroareolar region were evaluated sonographically. COMPARISON: Comparison is made with prior examinations. FINDINGS: Mammography/Tomosynthesis: Masses/Architectural Distortion: There are no persistent masses or areas of architectural distortion present. Microcalcifictions: No suspicious pleomorphic-type are seen. Skin Thickening/Nipple Retraction: None. Complete right breast US: Echotexture: There is no suspicious cystic or solid mass present. Shadowing: No suspicious foci. Cyst: None. Solid lesions: None seen. Ductal dilation: There is a duct seen in the region. It is unremarkable. IMPRESSION: 1. No evidence of malignancy is noted. 2. Unless there is more urgent need, follow-up screening mammography is recommended, as per [employer] [employer] guidelines. 3. The findings were discussed with the patient on the date of the examination. BI-RADS Category 1 - Negative Breast Density - Category C - The breast are heterogeneously dense, which may obscure small masses. Breast density Category C or D implies that the patient has dense breast tissue. Dense breast tissue can make it harder to find cancer on a mammogram. Dense breast tissue is also associated with an increased risk of breast cancer. This information about the result of the mammogram report was provided to the patient to raise their awareness. Use this report when you speak with the patient about their risks for breast cancer, which includes their family history. At that time, you may recommend additional screening tests (Ultrasound or MRI) as these tests may add significant information. A negative radiographic report should not delay biopsy if a dominant or clinically suspicious mass is present. Up to ten percent of cancers are not identified on mammography. A negative report may reinforce clinical impression. Adenosis and dense breasts may obscure an underlying neoplasm. False positive reports average 6 to 10%. Patient will receive a letter notifying them of these results.
== END 2025-05-03 02:36 ==
LOC: DI 02:16
PROVIDERS: PCP Family Medicine; Visit Provider Family Medicine
DX: Z12.31 Encounter for screening mammogram for malignant neoplasm of breast (principal); N63.11 Unspecified lump in the right breast, upper outer quadrant
CPT/HCPCS: 76642; 77061; 77065; G0279

== ENCOUNTER 2025-05-03 09:48 | Outpatient (REF) | payer BC, SELFPAY ==
[2025-05-03 15:52] LABS: ALT 29 U/L (14-59); AST 19 U/L (15-37); Albumin 3.9 g/dL (3.4-5.0); Alkaline Phosphatase 78 U/L (46-116); Anion Gap 10.8 mmol/L (3-11); BUN 13 mg/dL (7-18); Bilirubin, Total 0.2 mg/dL (0.2-1.0); CO2 27.2 mmol/L (21.0-32.0); Calcium 9.6 mg/dL (8.5-10.1); Chloride 102 mmol/L (98-107); Estimated GFR 98.34 (mL/min/1.73m2); Glucose 88 mg/dL (74-106); Potassium 4.4 mmol/L (3.5-5.1); Sodium 140 mmol/L (136-145); Total Protein 7.8 g/dL (6.4-8.2)
== END 2025-05-03 09:49 | disposition home or self-care (01) ==
LOC: NCHCN 09:48
PROVIDERS: PCP Family Medicine; Visit Provider Family Medicine
DX: Z51.81 Encounter for therapeutic drug level monitoring (principal)
CPT/HCPCS: 80053

== ENCOUNTER → 2025-05-19 14:18 | Outpatient (CLI) | payer BC, SELFPAY ==
--- NOTE | 2025-05-19 | DI.RAD_ITS ---
Exam(s) XR THORACIC SPINE COMPLETE EXAM: XR THORACIC SPINE COMPLETE CLINICAL HISTORY: CHRONIC UPPER BACK PAIN M54.9 DORSALGIA G89.29 CHRONIC PAIN. TECHNIQUE: 2D digital imaging was performed of the thoracic spine. Three views were obtained. AP, swimmer's and lateral views were obtained. COMPARISON: CR PORTABLE CHEST ONE VIEW from 10/17/2016 FINDINGS: BONES: There is no fracture or destructive lesion. Degenerative changes are seen in the mid and lower thoracic spine characterized by disc space narrowing and osteophytes. DISKS:There is a very mild S-type thoracolumbar scoliosis present. Interverebral disc spaces are maintained. SOFT TISSUE: Visualized lungs are clear. IMPRESSION: [id number] degenerative changes in the thoracic spine. DATA REPOSITORY: RADIATION DOSE DELIVERED:
== END ==
LOC: DI 14:18
PROVIDERS: PCP Family Medicine; Visit Provider Family Medicine
DX: M54.9 Dorsalgia, unspecified (principal)
CPT/HCPCS: 72072

== ENCOUNTER → 2025-05-28 11:03 | Outpatient (CLI) | payer BC, SELFPAY ==
--- NOTE | 2025-05-28 10:30 | DI.RAD_ITS ---
Exam(s) XR WRIST LT COMPLETE EXAM: XR WRIST LT COMPLETE CLINICAL HISTORY: left wrist and hand swelling, LT ARM SWELLING, M79.89. TECHNIQUE: 2D digital imaging was performed. COMPARISON: No exams were available for comparison FINDINGS: 3 views No evidence of acute fracture or dislocation nor significant ulnar variance. Scaphoid and scapholunate distance are normal. There is a nonexpansile bone cyst evident in the medial half of the lunate bone in the proximal carpal row. This cyst measures approximately 7 x 6 mm. There is some degenerative change on 1 the lateral aspect of the wrist at the triscaphe joint, including some erosive degenerative change are on the proximal aspect of the trapezium. The actual 1st carpometacarpal joint itself appears unremarkable. IMPRESSION: No fractures. Degenerative changes at the triscaphe joint. Bone cysts noted in the lunate. DATA REPOSITORY: RADIATION DOSE DELIVERED:
--- NOTE | 2025-05-28 10:30 | DI.RAD_ITS ---
Exam(s) XR HAND LT COMPLETE EXAM: XR HAND LT COMPLETE CLINICAL HISTORY: left wrist and hand swelling, LT ARM SWELLING, M79.89. TECHNIQUE: 2D digital imaging was performed. COMPARISON: No exams were available for comparison FINDINGS: 3 views No evidence of acute fracture or dislocation. There is a small sub mm calcific density adjacent to the lateral aspect of the head-neck of the 2nd metacarpal, questionable significance. No other abnormal soft tissue calcifications. No osseous lesions nor erosions in the hand. Degenerative changes are noted in the lateral aspect of the wrist at the triscaphe joint and there is also a non expansile bone cyst in the medial aspect of the lunate. IMPRESSION: No acute osseous findings in the hand. Other findings as above. DATA REPOSITORY: RADIATION DOSE DELIVERED:
--- NOTE | 2025-05-28 11:15 | DI.US_ITS ---
Exam(s) US UPPER EXTREMITY VENOUS LT EXAM: US UPPER EXTREMITY VENOUS LT CLINICAL HISTORY: left wrist and hand swelling, LT ARM SWELLING, M79.89 TECHNIQUE: GRAYSCALE, COLOR, DOPPLER IMAGING OF THE VENOUS SYSTEM OF THE UPPER EXTREMITY-LEFT COMPARISON: None. FINDINGS: Basilic vein: Patent. Normal color-flow and normal compression and augmentation properties. Brachial vein(s):Patent. Normal color flow. Normal compression and augmentation properties. Cephalic vein:Patent. Normal color flow. Normal compression and augmentation properties. Axillary vein: Patent. Normal color flow. Normal compression and augmentation properties. Visualized subclavian vein: Patent. No obvious intraluminal thrombus. Other: There does appear to be some edema evident in the ipsilateral hand-forearm IMPRESSION: 1. No evidence of venous thrombosis in the left upper extremity. 2. Some edema is noted in the left forearm. DATA REPOSITORY:
== END ==
LOC: DI 11:04
PROVIDERS: PCP Family Medicine; Visit Provider Physician Assistant
DX: M79.89 Other specified soft tissue disorders (principal)
CPT/HCPCS: 73110; 73130; 93971

== ENCOUNTER 2025-05-28 11:04 | Outpatient (CLI) | payer BC, SELFPAY ==
[2025-05-28 11:21] LABS: Abs Immature Grans 0.04 10^3/uL (0.0-0.06); HCT 38.8 % (36.0-46.0); HGB 12.4 g/dL (11.2-15.7); Immature Grans % 0.4 %; MCH 28.5 pg (27.0-33.0); MCHC 32.0 % (32.0-36.0); MCV 89 fL (80-95); MPV 9.5 fL (8.0-11.0); Platelet Count 325 10^3/uL (130-400); RBC 4.35 10^6/uL (3.93-5.22); RDW 11.9 % (11.7-14.6); RDW-SD 38.8 fL; WBC 9.81 10^3/uL (4.4-10.8)
[2025-05-28 11:23] LABS: ESR 18 mm/hr (0-30)
[2025-05-28 12:28] LABS: C-Reactive Protein 5.06 mg/dL (<=0.50)
[2025-05-28 12:30] LABS: Uric Acid 3.2 mg/dL (3.1-7.8)
[2025-05-30 19:39] LABS: B. miyamotoi PCR Negative (Negative); Babesia divergens/MO-1 Negative (Negative); Ehrlichia muris eauclairensis Negative (Negative)
[2025-05-31 11:32] LABS: Lyme Ab w Rflx to Lyme Confirm Positive (Negative)
[2025-05-31 15:10] LABS: Lyme IgG Ab Positive (Negative)
== END 2025-05-28 11:05 | disposition home or self-care (01) ==
LOC: LBO 11:09
PROVIDERS: PCP Family Medicine; Visit Provider Physician Assistant
DX: M79.89 Other specified soft tissue disorders (principal); M25.439 Effusion, unspecified wrist
CPT/HCPCS: 36415; 85652; 86617; 87798; 84550; 85025; 86140; 86618

== ENCOUNTER 2025-06-03 16:53 | Outpatient (CLI) | payer BC, SELFPAY ==
[2025-06-03 18:31] LABS: Uric Acid 4.4 mg/dL (3.1-7.8)
[2025-06-07 12:09] LABS: Lyme Ab w Rflx to Lyme Confirm Positive (Negative)
[2025-06-07 14:18] LABS: Lyme IgG Ab Positive (Negative)
== END 2025-06-03 16:54 | disposition home or self-care (01) ==
LOC: LBO 16:53
PROVIDERS: Physician Assistant; PCP Family Medicine; Visit Provider Family Medicine
DX: A69.20 Lyme disease, unspecified (principal); M19.90 Unspecified osteoarthritis, unspecified site; M25.532 Pain in left wrist
CPT/HCPCS: 36415; 86200; 86617; 84550; 86431; 86618

== ENCOUNTER → 2025-06-18 00:25 | Outpatient (CLI) | payer BC, SELFPAY ==
--- NOTE | 2025-06-18 06:15 | DI.MRI_ITS ---
Exam(s) MR THORACIC SPINE WO EXAM: MR THORACIC SPINE WO CLINICAL HISTORY: pain,thoracic radiculitis,m54.14 TECHNIQUE: Multiplanar multisequence MRI of the thoracic spine was performed without intravenous contrast. COMPARISON: CR XR THORACIC SPINE COMPLETE from 05/19/2025 FINDINGS: OSSEOUS: There are no acute appearing thoracic vertebral fractures. There are no ominous osseous lesions in the thoracic vertebrae. THORACIC SPINAL CORD: There is no abnormal signal in the cervical spinal cord and no evidence of focal cord atrophy nor focal cord swelling. There is no evidence of syringomyelia nor significant spinal cord dysraphism. There is no evidence of mass at the conus medullaris. The position of the conus medullaris is at normal level. SIGNIFICANT INDIVIDUAL LEVEL FINDINGS: There is multilevel disc space narrowing. T3-4: There are Modic type 2 sub endplate fatty marrow changes on both sides of this disc space. There is mild annular bulging at this level evident but no significant disc herniation or central canal stenosis and there is no significant foraminal stenosis at this level. T5-6: There is a shallow right paracentral disc protrusion at this level which slightly flattens the anterior thecal sac but not the spinal cord at this level. Central canal dimensions are lower normal. There is no extension of the disc bulge into the exiting neural foramina and there is no foraminal stenosis on either side at this level. T7-8: There is a right paracentral disc protrusion at this level nor which extends posteriorly 3 mm and is approximately 6 mm wide. This indents the anterior thecal sac but not the spinal cord at this level. Central canal dimensions are lower normal. There is no extension of annular bulging into the exiting neural foramen at this level and there is no foraminal stenosis evident. T8-9: Disc space narrowing and some Modic type 2 sub endplate fatty marrow changes no distinct disc herniation. Central canal dimensions are lower normal. No foraminal stenosis evident at this level. T10-11: Mild annular bulging in the floor of the exiting right neural foramen but no foraminal stenosis on either side at this level. No central canal stenosis. T12-L1: Mild symmetrical annular bulging. No prominent disc herniation. Central canal dimensions are lower normal. No significant foraminal stenosis. L1-2: Annular bulging which extends into the floor of the exiting right neural foramen. Central canal dimensions are lower normal. There is no significant foraminal narrowing on either side. PARASPINAL TISSUES: No significant masses nor fluid collections evident. IMPRESSION: 1. Small disc protrusions at T5-6 and T7-8 levels described above. No central canal stenosis at these levels and no prominent foraminal stenosis. 2. Other mild findings as above. 3. There are no compression fractures and no osseous lesions in the thoracic spinal column. DATA REPOSITORY:
--- NOTE | 2025-06-18 06:15 | DI.MRI_ITS ---
Exam(s) MR CERVICAL SPINE WO EXAM: MR CERVICAL SPINE WO CLINICAL HISTORY: pain,cervical radiculitis,m54.12 TECHNIQUE: Multiplanar multisequence MRI of the cervical spine was performed without intravenous contrast. COMPARISON: CR XR CERVICAL SPINE COMP 4-5V from 05/27/2023 FINDINGS: CERVICOMEDULLARY JUNCTION: Intact with no evidence of cerebellar tonsillar ectopia. No obvious abnormality of the odontoid process. No evidence of Chiari 1 malformation. There is no loss of the normal cervical curvature. CERVICAL SPINAL CORD: There is no abnormal signal in the cervical spinal cord and no evidence of focal cord atrophy nor focal cord swelling. OSSEOUS:There are no cervical fractures evident. No significant osseous lesions in the cervical vertebrae. INDIVIDUAL LEVELS: C2-3: No disc herniation nor central canal stenosis. No foraminal stenosis. No facet arthropathy. C3-4: No disc herniation nor central canal stenosis.No facet arthropathy. No foraminal stenosis. C4-5: Normal disc height. No disc herniation nor central spinal canal stenosis.Minimal facet arthropathy. No foraminal stenosis C5-6: Normal disc height. No prominent significant disc herniation or central canal stenosis. There is mild right-sided annular bulging. Results in some mild right-sided foraminal stenosis at this level. Minimal facet arthropathy. C6-7: Preserved disc height. Mild annular bulging but no disc herniation or central canal stenosis. There is no significant facet hypertrophy. Mild left- sided foraminal stenosis due to the annular bulging.. No foraminal stenosis on the right side. C7-T1: No disc herniation nor central canal stenosis. No facet arthropathy.No foraminal stenosis. IMPRESSION: 1. Minimal findings in the cervical spine. No significant disc herniations and no evidence of central canal stenosis. 2. There is mild right-sided foraminal stenosis at C5-6 level and mild left- sided foraminal stenosis at C6-7 level for reasons as above. 3. There is no significant facet arthropathy in the cervical spine. DATA REPOSITORY:
== END ==
LOC: DI 00:25
PROVIDERS: PCP Family Medicine; Visit Provider Anesthesiology Pain Medicine
DX: M54.12 Radiculopathy, cervical region (principal); M54.14 Radiculopathy, thoracic region
CPT/HCPCS: 72141; 72146